=== PATIENT | female | born 1950 | race African-American/Black ===

== ENCOUNTER → 2019-09-29 | Day surgery (SDC) | payer OTHER ==
[2019-09-23 15:41] LABS: BASOPHILS % 0.3 % (0.0-1.0); EOSINOPHILS # (AUTO) 0.3 (0.0-0.4); EOSINOPHILS % 2.9 % (0.0-6.0); HEMATOCRIT 39.3 % (34.2-44.1); HEMOGLOBIN 12.1 g/dL (12.0-16.0); LYMPHOCYTES # (AUTO) 3.2 (1.0-3.2); LYMPHOCYTES % 35.8 % (18.0-39.1); MEAN CORPUSCULAR HEMOGLOBIN 27.4 pg (28-32); MEAN CORPUSCULAR HGB CONC 30.8 g/dL (31-35); MEAN CORPUSCULAR VOLUME 88.9 fL (81-99); MONOCYTES # (AUTO) 0.8 (0.2-0.8); MONOCYTES % 8.7 % (4.4-11.3); NEUTROPHILS # (AUTO) 4.6 (2.1-6.9); PLATELET COUNT 202 x10e3/uL (140-360); RED BLOOD COUNT 4.42 x10e6/uL (3.6-5.1); RED CELL DISTRIBUTION WIDTH 13.6 % (11.7-14.4)
[~2019-09-29] MED LIST: AMLODIPINE-BENAZ PO; FENTANYL CITRATE/PF 100MCG/2 ML INJ ONE; HYDROCHLOROTHIA50 MG PO; LIDOCAINE HCL 2% LOCAL INJ 5 ML SDV VIAL INJ ONE; LOVASTATIN40 MG PO; MIDAZOLAM HCL 2 MG/2 ML VIAL ONE; PROPOFOL IV EMULSION 10 MG/ML 20 ML VIAL ONE
[2019-09-29 09:20] VITALS: BP 118/76
== END | disposition home or self-care (01) ==
LOC: OR 05:58
PROVIDERS: ATTEND Internal Medicine Gastroenterology
DX: Z12.11 Encounter for screening for malignant neoplasm of colon (principal); K63.5 Polyp of colon; K57.30 Diverticulosis of large intestine without perforation or abscess without bleeding; K64.8 Other hemorrhoids; Z71.3 Dietary counseling and surveillance; I10 Essential (primary) hypertension; E66.9 Obesity, unspecified; I49.9 Cardiac arrhythmia, unspecified; Z01.810 Encounter for preprocedural cardiovascular examination; Z01.812 Encounter for preprocedural laboratory examination; Z11.59 Encounter for screening for other viral diseases; Z68.32 Body mass index [BMI] 32.0-32.9, adult
CPT/HCPCS: 36415; 45378; 45385; 85025; 93005; J2001; U0002

== ENCOUNTER → 2024-10-06 | Day surgery (SDC) | payer OTHER ==
[2024-10-05 11:50] LABS: BASOPHILS % 0.3 % (0.0-1.0); EOSINOPHILS % 2.0 % (0.0-6.0); LYMPHOCYTES % 37.5 % (18.0-39.1); MONOCYTES % 7.3 % (4.4-11.3); NEUTROPHILS % 52.8 % (38.7-80.0); RED CELL DISTRIBUTION WIDTH 13.6 % (11.7-14.4)
[~2024-10-06] MED LIST changes: +AMLODIPINE-BEN1 EAC4 PO; -FENTANYL CITRATE/PF 100MCG/2 ML INJ ONE; +GABAPENTIN100 MG PO; -LIDOCAINE HCL 2% LOCAL INJ 5 ML SDV VIAL INJ ONE; +METOPROLOL SUCC25 MG PO; -MIDAZOLAM HCL 2 MG/2 ML VIAL ONE; +ROSUVASTATIN CA20 MG PO
[2024-10-06] MEDS: LACTATED RINGER'S 1,000 ML ONE (10:39)
[2024-10-06 11:34] VITALS: BP 121/64; PULSE 72; RESP 17; O2SAT 98
== END | disposition home or self-care (01) ==
LOC: OR 07:26
PROVIDERS: ATTEND Internal Medicine Gastroenterology
DX: Z09 Encounter for follow-up examination after completed treatment for conditions other than malignant neoplasm (principal); K63.5 Polyp of colon; K57.30 Diverticulosis of large intestine without perforation or abscess without bleeding; K64.8 Other hemorrhoids; I10 Essential (primary) hypertension; E78.5 Hyperlipidemia, unspecified; Z78.9 Other specified health status; Z01.810 Encounter for preprocedural cardiovascular examination; Z01.812 Encounter for preprocedural laboratory examination; Z79.899 Other long term (current) drug therapy; Z68.33 Body mass index [BMI] 33.0-33.9, adult; Z71.3 Dietary counseling and surveillance; Z80.0 Family history of malignant neoplasm of digestive organs
CPT/HCPCS: 36415; 45385; 85025; 88305; 93005; J2704; J7121; 45380